=== PATIENT | female | born 1960 | race Caucasian/White ===

== ENCOUNTER 2017-06-08 13:48 | Emergency (ER) | payer OTHER ==
[~2017-06-08] VITALS: Ht 149.9 cm; Wt 65.0 kg
[2017-06-08 14:00] VITALS: BP 147/78; PULSE 75; RESP 16; TEMP 98.3; O2SAT 98
--- NOTE | 2017-06-08 14:28 | PD ---
HPI Chief Complaint: Abnormal Results Time Seen by Provider: 14:15 Travel History International Travel<30 days: No Contact w/Intl Traveler<30days: No Traveled to known affect area: No History of Present Illness HPI 56-year-old female complains of left-sided jaw pain and neck pain. Patient states that she started having sharp severe left-sided jaw pain 2 days ago. Patient states that the pain lasted about an hour and resolved completely. Patient started having pressure to the back to the neck for the past 3 days. Patient states the pain aching pain pressure pain localized to the back to the neck in the left-sided neck. Patient denies any pain radiation. Patient states that she had palpitation 2 days ago but not now. Patient denies any nausea diaphoresis. Patient denies any coughing congestion fever chills. Patient denies any history of CAD. Patient has history hypertension, hyperlipidemia. Patient denies history diabetes. Patient is a nonsmoker. Patient has family history of heart disease. PFSH Social History Tobacco Use: No Allergies-Medications (Allergen,Severity, Reaction): Coded Allergies: No Known Allergies (Unverified , 06/08/17) Reported Meds & Prescriptions Reported Meds & Active Scripts Active Reported Escitalopram (Escitalopram Oxalate) 5 Mg Tab Unknown Dose PO DAILY Lipitor (Atorvastatin Calcium) 10 Mg Tab Unknown Dose PO HS Levothyroxine (Levothyroxine Sodium) 25 Mcg Tab Unknown Dose PO DAILY Lisinopril 2.5 Mg Tab Unknown Dose PO DAILY Review of Systems General / Constitutional: No: Fever Eyes: No: Visual changes HENT: Positive: Neck Pain, No: Headaches Respiratory: No: Shortness of Breath Gastrointestinal: No: Abdominal Pain Genitourinary: No: Dysuria Musculoskeletal: No: Pain Skin: No Rash Neurologic: No: Weakness Psychiatric: No: Depression Endocrine: No: Polydipsia Hematologic/Lymphatic: No: Easy Bruising Physical Exam Narrative GENERAL: Well-nourished, well-developed patient. SKIN: Focused skin assessment warm/dry. HEAD: Normocephalic. EYES: No scleral icterus. No injection or drainage. NECK: Supple, trachea midline. No JVD or lymphadenopathy. CARDIOVASCULAR: Regular rate and rhythm without murmurs, gallops, or rubs. RESPIRATORY: Breath sounds equal bilaterally. No accessory muscle use. GASTROINTESTINAL: Abdomen soft, non-tender, nondistended. MUSCULOSKELETAL: No cyanosis, or edema. BACK: Nontender without obvious deformity. No CVA tenderness. Neurologic exam normal. Data Data Last Documented VS Vital Signs Date Time Temp Pulse Resp B/P (MAP) Pulse Ox O2 Delivery O2 Flow Rate FiO2 06/08/17 15:32 58 16 137/76 (96) 98 06/08/17 14:35 Room Air 06/08/17 14:00 98.3 Orders Orders Electrocardiogram (06/08/17 14:21) Complete Blood Count With Diff (06/08/17 14:21) Comprehensive Metabolic Panel (06/08/17 14:21) Creatine Kinase (Cpk) (06/08/17 14:21) Troponin I (06/08/17 14:21) Prothrombin Time / Inr (Pt) (06/08/17 14:21) Act Partial Throm Time (Ptt) (06/08/17 14:21) Thyroid Stimulating Hormone (06/08/17 14:21) Chest, Single Ap (06/08/17 14:21) Iv Access Insert/Monitor (06/08/17 14:21) Ecg Monitoring (06/08/17 14:21) Oximetry (06/08/17 14:21) Ed Discharge Order (06/08/17 15:30) Labs Laboratory Tests Test 06/08/17 14:30 White Blood Count 5.0 TH/MM3 Red Blood Count 4.16 MIL/MM3 Hemoglobin 12.3 GM/DL Hematocrit 37.2 % Mean Corpuscular Volume 89.5 FL Mean Corpuscular Hemoglobin 29.7 PG Mean Corpuscular Hemoglobin Concent 33.2 % Red Cell Distribution Width 12.7 % Platelet Count 273 TH/MM3 Mean Platelet Volume 7.9 FL Neutrophils (%) (Auto) 67.4 % Lymphocytes (%) (Auto) 21.0 % Monocytes (%) (Auto) 7.9 % Eosinophils (%) (Auto) 2.4 % Basophils (%) (Auto) 1.3 % Neutrophils # (Auto) 3.3 TH/MM3 Lymphocytes # (Auto) 1.1 TH/MM3 Monocytes # (Auto) 0.4 TH/MM3 Eosinophils # (Auto) 0.1 TH/MM3 Basophils # (Auto) 0.1 TH/MM3 CBC Comment DIFF FINAL Differential Comment Prothrombin Time 10.6 SEC Prothromb Time International Ratio 1.0 RATIO Activated Partial Thromboplast Time 27.6 SEC Blood Urea Nitrogen 9 MG/DL Creatinine 0.92 MG/DL Random Glucose 86 MG/DL Total Protein 7.6 GM/DL Albumin 3.6 GM/DL Calcium Level 8.9 MG/DL Alkaline Phosphatase 125 U/L Aspartate Amino Transf (AST/SGOT) 16 U/L Alanine Aminotransferase (ALT/SGPT) 19 U/L Total Bilirubin 0.4 MG/DL Sodium Level 140 MEQ/L Potassium Level 3.9 MEQ/L Chloride Level 105 MEQ/L Carbon Dioxide Level 26.4 MEQ/L Anion Gap 9 MEQ/L Estimat Glomerular Filtration Rate 63 ML/MIN Total Creatine Kinase 110 U/L Troponin I LESS THAN 0.02 NG/ML Thyroid Stimulating Hormone 3rd Gen 1.030 uIU/ML MDM Medical Decision Making Medical Screen Exam Complete: Yes Emergency Medical Condition: Yes Interpretation(s) 1531 PM. EKG shows sinus rhythm nonspecific ST-T wave change. Chest x-ray shows no acute consolidation. Cardiac enzymes are normal Differential Diagnosis Differential diagnosis including cervical strain, angina, CO, PE, pneumothorax. Narrative Course 56-year-old female with transient left-sided jaw pain and now persistent neck pain. Patient was advised to be admitted to the chest pain center. Patient refused to be admitted. Patient wants to go home follow up with her physician. Diagnosis Primary Impression: Neck pain Patient Instructions: General Instructions Additional Instructions: Advised aspirin daily. Follow-up with personal physician. Return immediately if increasing the neck pain, chest pain, shortness of breath. Med/Other Pt SpecificInfo: No Change to Meds Disposition: 01 DISCHARGE HOME Condition: Stable Chele Mejia MD Jun 08, 2017 14:28
[2017-06-08 14:35] VITALS: O2SAT 98
[2017-06-08 14:40] LABS: AUTOMATED NEUTROPHIL # 3.3 TH/MM3 (1.8-7.7); BASOPHIL # 0.1 TH/MM3 (0-0.2); BASOPHIL % 1.3 % (0.0-2.0); EOSINOPHIL # 0.1 TH/MM3 (0-0.4); EOSINOPHIL % 2.4 % (0.0-4.0); HEMATOCRIT 37.2 % (35.0-46.0); HEMOGLOBIN 12.3 GM/DL (11.6-15.3); LYMPHOCYTE # 1.1 TH/MM3 (1.0-4.8); MEAN CELL VOLUME 89.5 FL (80.0-100.0); MEAN CORPUSCULAR HEMOGLOBIN 29.7 PG (27.0-34.0); MEAN CORPUSCULAR HGB CONC 33.2 % (32.0-36.0); MEAN PLATELET VOLUME 7.9 FL (7.0-11.0); MONO % 7.9 % (0.0-8.0); MONOCYTE # 0.4 TH/MM3 (0-0.9); NEUT % 67.4 % (16.0-70.0); PLATELET COUNT 273 TH/MM3 (150-450); RED BLOOD COUNT 4.16 MIL/MM3 (4.00-5.30); RED CELL DISTRIBUTION WIDTH 12.7 % (11.6-17.2)
[2017-06-08 14:49] LABS: CHLORIDE 105 MEQ/L (98-107); SODIUM (NA) 140 MEQ/L (136-145)
[2017-06-08 14:52] LABS: ALBUMIN 3.6 GM/DL (3.4-5.0); BICARBONATE 26.4 MEQ/L (21.0-32.0); CALCIUM 8.9 MG/DL (8.5-10.1)
[2017-06-08 14:53] LABS: BLOOD UREA NITROGEN 9 MG/DL (7-18); GLUCOSE,RANDOM 86 MG/DL (74-106)
[2017-06-08 14:54] LABS: PROTHROMBIN TIME - PATIENT 10.6 SEC (9.8-11.6)
[2017-06-08 14:56] LABS: ALT (GPT) 19 U/L (10-53); AST (GOT) 16 U/L (15-37); CREATININE 0.92 MG/DL (0.50-1.00); GLOMERULAR FILTRATION RATE 63 ML/MIN (>89)
[2017-06-08 14:57] LABS: TOTAL BILIRUBIN ADULT 0.4 MG/DL (0.2-1.0); TOTAL PROTEIN 7.6 GM/DL (6.4-8.2)
[2017-06-08 14:58] LABS: ALKALINE PHOSPHATASE 125 U/L (45-117)
[2017-06-08 15:01] LABS: TROPONIN I LESS THAN 0.02 NG/ML (0.02-0.05)
[2017-06-08] MEDS ORDERED: LISI2.5T3 PO (15:04)
[2017-06-08] MEDS ORDERED: ESCI5TAB PO (15:04)
[2017-06-08] MEDS ORDERED: LIPI10TA PO (15:04)
[2017-06-08] MEDS ORDERED: LEVO25TA4 PO (15:04)
[2017-06-08 15:32] VITALS: BP 137/76
--- NOTE | 2017-06-08 15:32 | RADRPT ---
EXAM DATE/TIME: 06/08/2017 15:14 [facility] COMPARISON: No previous studies available for comparison. INDICATIONS : Left jaw area pain MEDICAL HISTORY : Hypertension. SURGICAL HISTORY : None. ENCOUNTER: Initial ACUITY: 1 day PAIN SCORE: 5/10 LOCATION: Left upper chest FINDINGS: A single view of the chest demonstrates the lungs to be symmetrically aerated without evidence of mas s, infiltrate or effusion. The cardiomediastinal contours are unremarkable. Osseous structures are intact. CONCLUSION: No acute disease. Pradeep Colindres MD on June 08, 2017 at 15:29 Board Certified Radiologist. This report was verified electronically.
--- NOTE | 2017-06-09 10:50 | EKG ---
Date Performed: 06/08/2017 Time Performed: 14:41:03 PTAGE: 56 years EKG: Sinus rhythm NORMAL ECG NO PREVIOUS TRACING DOCTOR: Shreyas Biswas Interpretating Date/Time 06/09/2017 10:49:07
== END 2017-06-08 15:40 | disposition home or self-care (01) ==
LOC: PHED 13:48
DX: M54.2 Cervicalgia (principal); E78.5 Hyperlipidemia, unspecified; I10 Essential (primary) hypertension; Z82.49 Family history of ischemic heart disease and other diseases of the circulatory system
CPT/HCPCS: 71045; 80053; 82550; 84443; 84484; 85025; 85610; 85730; 93005; 99285